=== PATIENT | male | born 1995 | race Caucasian/White ===

== ENCOUNTER → 2017-12-13 | Outpatient (CLI) | payer OTHER | END | disposition home or self-care (01) | LOC: C.RDSM 16:24 | PROVIDERS: ATTEND Orthopaedic Surgery | DX: M25.562 Pain in left knee (principal) ==

== ENCOUNTER → 2018-01-09 | Day surgery (SDC) | payer OTHER ==
[2017-12-21 13:46] VITALS: Ht 177.8 cm; Wt 81.8 kg
[~2018-01-09] VITALS: Ht 177.8 cm; Wt 81.8 kg
[~2018-01-09] MED LIST: ATROPINE SULFATE 0.1 MG/ML 5ML SYR IV PRN; CEFAZOLIN 2000MG IV PUSH 15 ML IV SCH; DEXAMETHASONE SOD INJ 4 MG/ML VIAL ONE; EpHEDrine SULFATE INJ 50 MG/ML AMP IV PRN; EpINEphrine HCL INJ 1 MG/ML 1ML SYRINGE ONE; FENTANYL CITRATE INJ 50 MCG/1 ML 2 ML VIAL ONE; HYDROmorphone INJ 2 MG/ML SYR/VIAL IV PRN; LACTATED RINGER'S 1000ML 1,000 ML IV SCH; LIDO 2%/EPINEPHRINE 1:100000 20 ML VIAL ONE; LIDOCAINE HCL 2% 2 ML VIAL (20MG/ML) ONE; METOCLOPRAMIDE HCL INJ 5 MG/ML 2 ML VIAL IV PRN; MIDAZOLAM HCL 1 MG/ML 2ML VIAL ONE; ONDANSETRON INJ 2 MG/ML 2 ML VIAL IV PRN; ONDANSETRON INJ 2 MG/ML 2 ML VIAL ONE; OXYCODONE/ACETAMINOPHEN 5-325 TAB PO PRN; PHENYLEPHRINE 100MCG/ML 5ML SYR IV PRN; PROPOFOL IV EMULSION 10 MG/ML 20 ML VIAL ONE; ROPIVACAINE 0.5% 5 MG/ML 30 ML VIAL ONE; SODIUM CHLORIDE 0.9% 1000ML 1,000 ML IV SCH
--- NOTE | 2018-01-09 06:52 | History & Physical Bridge - [place] ---
H&P Re-Evaluation Bridge Note: I have examined the patient, reviewed the History & Physical and in the interval since the performance of the History & Physical I have noted the following changes of clinical significance: No changes noted
--- NOTE | 2018-01-09 08:16 | [facility] Post Operative Brief Note ---
Immediate Operative Summary Operative Date Jan 09, 2018. Pre-Operative Diagnosis Left Knee Retained Orthopedic Hardware Post-Operative Diagnosis Same, Partially Unhealed Cartilage Fragment, Lateral Meniscal Tear Procedure(s) Performed Left Knee Arthroscopy, Open Hardware Removal, Partial Lateral Meniscectomy, Loose Body Removal, Carticel Biopsy Surgeon Dr. Valencia Supervisor Machine Setter Surgeon(s) Tenzin Severino PA-C Estimated Blood Loss 10 ml Findings Consistent with Post-Op Diagnosis Fluids (cc crystalloids) 600 cc Specimens None Drains None Anesthesia Type General Complication(s) none Disposition Accompanied Pt To Recover: no Disposition: Recovery Room / PACU
--- NOTE | 2018-01-09 08:39 | [facility] Operative Report ---
Operative Report Operative Date Jan 09, 2018. Pre-Operative Diagnosis Left Knee Retained Orthopedic Hardware Post-Operative Diagnosis Same, Partially Unhealed Cartilage Fragment, Lateral Meniscal Tear Procedure(s) Performed Left Knee Arthroscopy, Open Hardware Removal, Partial Lateral Meniscectomy, Loose Body Removal, Carticel Biopsy Surgeon Dr. Valencia Welding Operator Surgeon(s) Tenzin Severino PA-C Estimated Blood Loss 10 ml Fluids 600 cc Specimens Articular cartilage fragment Drains None Anesthesia Type General Complication(s) none Disposition no Recovery Room / PACU Description of Procedure I was present during the entire case, assisting with wound closure and dressing/ brace placement. Please see Dr. Valencia procedure note for specifics of the case. I attest to the content of the Intraoperative Record and any orders documented therein. Any exceptions are noted below.
--- NOTE | 2018-01-09 08:42 | Discharge Instructions ---
Discharge Instructions Date of Service Jan 09, 2018. Admission Reason for Admission: Left Knee Retained Orthopedic Hardware Discharge Discharge Diagnosis / Problem: Left knee retained orthopedic hardware. Discharge Goals Goal(s): Decrease discomfort, Improve function, Increase independence Activity Recommendations Activity Limitations: as noted below Lifting Limitations: none Exercise/Sports Limitations: until after follow-up appointment May Resume Sexual Activity: when tolerated Shower/Bathe: tomorrow, keep incision dry Driving or Machine Use: No driving until cleared by retail account specialist Weightbearing Status: Left weightbearing (as tolerated with brace and crutches) . Instructions / Follow-Up Instructions / Follow-Up Post-operative Instructions Dear Patient and Family/Friends, Before you are discharged from the hospital, it is important to know what to expect when you get home after surgery. To that end, we have created this sheet of discharge instructions which covers many commonly asked questions. Make sure you go through this sheet in its entirety with your nurse before you are discharged. Please note that we will go over the specifics of your surgery and recovery when you return for your first post-operative visit. Sincerely, Dr. Valencia Pain Expect to be in a fair amount of pain after surgery. Remember, our goal is not to eliminate your pain, but to make it tolerable. It is a good idea to stay ahead of your pain by taking the medications you were prescribed once you get home. Typically, the pain starts improving 3-7 days after surgery. You should start weaning off the narcotic pain medication (oxycodone, hydrocodone, hydromorphone, morphine) as soon as your pain improves. Please call our office if your pain is not adequately controlled. Ice Ice your operative site at least 5 times a day for 15-30 minutes at a time. Make sure you have a thin cloth between the ice or cooling unit and your skin to prevent patterson bite. This is especially important if you received a nerve block. Continue icing your operative site for the first 5-7 days after surgery , then as needed. Diet/Nausea/Vomiting Start by drinking clear liquids and eating crackers. If you can tolerate this, then you may resume your normal diet. If you feel nauseated or vomit, take Zofran/ondansetron (if prescribed). Please call our office if you have intractable nausea or vomiting, or, if after hours, you may go to the Emergency Room for help. Constipation Constipation is a common side effect of narcotic pain medication. If you have not had a bowel movement within 2 days after surgery, we recommend purchasing an over the counter laxative such as Milk of Magnesia, Dulcolax, or Miralax from a local pharmacy, and taking it as instructed. Call our clinic if any questions. Slings and Braces If you were placed in a sling or brace, it must be worn at all times, including sleep. You may remove your sling or brace for physical therapy, home exercises , and showering. The length of time you will be in your brace and range of motion restrictions depends on what surgery you had; these details will be reviewed at your first post-operative appointment. Weight bearing and Range of Motion. Do not bear any weight through your operative extremity immediately after surgery. If you had upper extremity surgery, do not lift anything with that arm. If you are in a knee brace, keep it locked in place until your follow-up. We will discuss your weight bearing, range of motion, and lifting restrictions in detail at your first post-operative appointment. Continuous Passive Motion (CPM) Machine If you were prescribed a CPM machine, it will start after your first post- operative appointment, at which time we will give you instructions on the range of motion settings and duration of treatment Physical therapy You will be given a prescription for physical therapy or occupational therapy at your first post-operative appointment. Typically, patients start therapy within 1 week of surgery Wound care and showering We will inspect your wound at your first post-operative visit, and may do a dressing change at that time. Most patients will be in a water-proof dressing that is removed 14 days after surgery. It is normal to see some dried blood on the dressing. Do not remove your dressing, paper strips or sutures yourself unless you are given permission. Showering is allowed the day after surgery. Do not scrub or remove any dressings. The wound should not be submerged underwater (i.e. in a bathtub or pool) until 4 weeks after surgery DIDIER stockings If you were given white stockings, these are to be worn at all times except to shower (on both legs) for the first 2 weeks after surgery. Driving You may not drive while taking narcotic pain medication or while in a cast, splint, sling or brace. You, the patient, need to make the final determination about when you are safe to drive, however, the earliest you may consider driving after surgery is below: Hand/Wrist/Elbow Surgery: 3 days Shoulder Surgery: 2 weeks Hip,/Knee/Ankle Surgery: 4 weeks Fracture repair: 6 weeks Return to Work Your return to work depends on what surgery was done and what type of work you do. Please bring any paperwork your employer needs completed to your first post -operative visit. Also, bring a description of your job duties, as this helps us to understand what risks you may face at work. Travel Avoid long distance travel (greater than 1 hour) in airplanes and cars for the first 6 weeks after surgery. If you must travel, you need to have a Doppler ultrasound done before you travel to rule out a blood clot in your legs. Follow-up You should have a follow-up appointment already scheduled 1-2 days after surgery. If not, please contact our office to make this appointment before you leave the hospital. When to call the office It is normal to have swelling and bruising in the limb that was operated on. This will improve with time. It is also normal to have fevers for the first 2 days after surgery. Reasons you should call your doctor include: Uncontrolled pain; Nausea, vomiting, or constipation that does not improve with medication; Fevers over 101.5, chills, sweats; Drainage or bleeding from the wound; Foul odor; Spreading areas of redness; Any other concerns Current Hospital Diet Patient's current hospital diet: Discharge Diet Recommended Diet: Regular Diet Procedures Procedures Performed: Left Knee Arthroscopy, Open Hardware Removal, Partial Lateral Meniscectomy, Loose Body Removal, Carticel Biopsy Pending Studies Studies pending at discharge: yes List of pending studies: Keerthi Graham Medical Emergencies . Who to Call and When: Medical Emergencies: If at any time you feel your situation is an emergency, please call 911 immediately. . Non-Emergent Contact Non-Emergency issues call your: Primary Care Provider Call Non-Emergent contact if: you have a fever, temperature is above 101.5, your pain is not controlled, your pain is worsening, wound has increased drainage, you have any medication questions . "Provider Documentation" section prepared by Robi Severino. . [place] Drug Monitoring Program Search Results: patient reviewed within database, no issues identified, see additional documentation
--- NOTE | 2018-01-09 09:07 | Anesthesia Progress Nt - [facility] ---
Anesthesia Post Op Note Date & Time Jan 09, 2018 at 09:07 Vital Signs Pain Intensity: 1 Vital Signs Past 12 Hours Date Time Temp Pulse Resp B/P (MAP) Pulse Ox O2 Delivery O2 Flow Rate FiO2 01/09/18 08:36 37.1 95 16 148/80 99 Mask 6 01/09/18 06:28 36.5 62 16 124/66 (85) 99 Room Air Notes Mental Status: alert / awake / arousable, participated in evaluation Pt Amnestic to Procedure: Yes Nausea / Vomiting: adequately controlled Pain: adequately controlled Airway Patency, RR, SpO2: stable & adequate BP & HR: stable & adequate Hydration State: stable & adequate Anesthetic Complications: no major complications apparent
[2018-01-09 09:15] VITALS: TEMP 36.5
--- NOTE | 2018-01-09 09:18 | OPERATIVE REPORT ---
DATE OF OPERATION: 01/09/2018 PREOPERATIVE DIAGNOSIS: Retained orthopedic hardware, status post open reduction and internal fixation of a cartilage fragment and lateral meniscus repair. POSTOPERATIVE DIAGNOSES: 1. Retained orthopedic hardware. 2. Partially healed Lateral meniscus tear. 3. Partially healed cartilage fragment. OPERATIONS PERFORMED: 1. Left knee arthroscopic partial lateral meniscectomy. 2. Left knee open hardware removal. 3. Left knee loose body removal. 4. Left knee open cartilage biopsy. SURGEON: Champ Valencia MD PROCESS ASSISTANT: Tenzin Severino. ESTIMATED BLOOD LOSS: 10 mL. IMPLANTS: None. SPECIMENS: Cartilage fragments sent for cartilage biopsy. COMPLICATIONS: None. INDICATIONS: Glenn is a 22-year-old male who had an injury playing soccer earlier this year where he felt a pop in his knee. He had an MRI that showed a loose cartilage fragment as well as a lateral meniscus tear. On 10/31/2017, he underwent a knee arthroscopy, lateral meniscus repair of a complex lateral meniscus tear as well as open fixation of the loose cartilage fragment that had displaced and was floating in his knee via an open lateral parapatellar arthrotomy. He has been nonweightbearing since that time. Surgery is now indicated to remove the metal screws fixating the cartilage fragment as well as to evaluate the status of healing of this cartilage fragment and lateral meniscus repair. I had a long discussion with him about the risks and benefits of surgery, alternatives to surgery, and expected outcomes. He understood from the outset before even his first surgery that there was a chance this cartilage fragment and his meniscus tear may not completely heal. All questions were answered. Informed consent was signed. OPERATIVE FINDINGS: 1. The suprapatellar pouch was normal. 2. The medial and lateral gutters were free of any loose bodies. 3. The trochlea was normal. 4. The medial compartment showed grade 1 softening of the medial tibial plateau and the medial femoral condyle. The medial meniscus was intact. 5. The notch showed the ACL and the PCL to be intact. 6. 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 His radial lateral meniscus tear had partially healed; however, the horizontal component and the posterior horn had not completely healed. 7. The lateral femoral condyle cartilage defect showed to have partially healed with the posterior half of the cartilage fragment completely healed, but the anterior half had not healed. The lateral meniscus tear was debrided to a stable margin. The 2 metal screws were removed. The cartilage fragment that had not healed anteriorly was removed and was sent for a biopsy for a JANKI procedure. The remaining cartilage defect size after removing the unstable cartilage was 15 mm x 15 mm. DESCRIPTION OF THE OPERATION: The patient was identified in the preoperative holding area where his surgical site was marked. He was brought back to main operating room, where he was placed on the operating room table, and general anesthesia was administered. All bony prominences were padded. Perioperative antibiotics were administered. He was prepped and draped in the normal sterile fashion. Prior to incision, a multidisciplinary timeout was called. All in the room were in agreement. We began by exsanguinating the limb with an Esmarch bandage. Tourniquet was inflated to 250 mmHg. The medial arthroscopic portal was created first, and the arthroscope was introduced into the joint. I then inspected the cartilage repair and attempted to see if I could remove the 2 screws through percutaneous stab incisions. However, due to the trajectory of the screws and the location of the cartilage fragment so far laterally and posteriorly, this could not be accomplished. Therefore, I made a traditional anterior lateral portal through his previous incision. Diagnostic arthroscopy was then performed revealing the above findings. Once the diagnostic arthroscopy was complete, the leg was placed in the [id number] position. Using a combination of meniscal biters and shaver, the lateral meniscus tear which had not completely healed was debrided back to stable margins. This took a significant portion of the lateral meniscus adjacent to the popliteal hiatus, however, the remaining aspect of the meniscus was intact leaving him with approximately 75% of his total meniscus volume but only approximately 5 mm thickness at the popliteal hiatus. Once the lateral meniscectomy was complete, I then removed the arthroscopic instruments from the knee. His previous incision was opened up. A lateral parapatellar arthrotomy was made. The cartilage defect was exposed using Z retractor. The cartilage was again closely inspected, and the posterior aspect of the cartilage had completely healed; however, the anterior aspect had not healed and was loose. I, therefore, removed the anterior screw initially. The loose cartilage fragment was debrided, and this loose cartilage body was then sent to [facility] to expand the chondrocytes for the possibility of JANKI procedure in the future. The defect size was then measured, it was 15 mm x 15 mm. The knee was flexed up further, and the more posterior middle screw was removed. After removing the screw, the cartilage was again probed and was found to be stable. At this point, the knee was copiously irrigated with normal saline. The arthrotomy was closed with a running 0 Vicryl stitch. Skin was closed with 3-0 Vicryl in the deep dermis in running fashion followed by a 3-0 Monocryl in the subcutis. His medial portal was closed with an inverted 3-0 Monocryl. Steri-Strips were applied followed by sterile dressing. Patient was awoken from anesthesia and transferred to the recovery room in stable condition. POSTOPERATIVE COURSE: Patient will be discharged home from the recovery room. We will allow him to weightbear as tolerated with crutches and no brace. We will have a discussion with him about future treatment options including JANKI procedure versus osteochondral allograft. He is likely going to need one of these procedures in the near future to preserve the long-term health of his knee. He will be on aspirin for DVT prophylaxis. I attest to the content of the Intraoperative Record and any orders documented therein. Any exceptions are noted below. MELISSA
[2018-01-09 09:57] VITALS: BP 119/76; PULSE 76; O2SAT 98
== END | disposition home or self-care (01) ==
LOC: X.SURG 06:20
PROVIDERS: ATTEND Orthopaedic Surgery
DX: Z47.2 Encounter for removal of internal fixation device (principal); S83.282A Other tear of lateral meniscus, current injury, left knee, initial encounter; X58.XXXA Exposure to other specified factors, initial encounter